=== PATIENT | female | born 1995 | race Caucasian/White ===

== ENCOUNTER 2017-10-09 13:32 | Emergency (ER) | payer SELFPAY ==
[~2017-10-09] VITALS: Ht 167.6 cm; Wt 90.0 kg
[2017-10-09] MEDS ORDERED: LIDOCAINE HCL 1% 20ML VIAL (Pyxis) INJ MC ONE (18:30)
[2017-10-09] MEDS ORDERED: BACITRACIN ZINC OINT UDPKT TOP ONE (18:30)
[2017-10-09] MEDS ORDERED: TETANUS, DIPHTHERIA, PERTUSSIS VAC/PF 0.5ML (>7YR OLD) IM ONE (18:30)
[2017-10-09 21:00] VITALS: BP 128/78
== END 2017-10-09 21:17 | disposition home or self-care (01) ==
LOC: ER 15:17
DX: S61.511A Laceration without foreign body of right wrist, initial encounter (principal); W25.XXXA Contact with sharp glass, initial encounter; Y92.89 Other specified places as the place of occurrence of the external cause; Z23 Encounter for immunization
CPT/HCPCS: 12001; 73110; 81025; 90471; 90715; 99284; J3490; Z7610

== ENCOUNTER 2017-10-16 14:58 | Emergency (ER) | payer SELFPAY ==
[~2017-10-16] VITALS: Ht 152.4 cm; Wt 110.0 kg
[2017-10-16 15:03] VITALS: BP 118/81
== END 2017-10-16 18:10 | disposition home or self-care (01) ==
LOC: ER 15:03
DX: Z48.00 Encounter for change or removal of nonsurgical wound dressing (principal); R03.0 Elevated blood-pressure reading, without diagnosis of hypertension
CPT/HCPCS: 99281

== ENCOUNTER 2022-07-30 01:13 | Emergency (ER) | payer MEDICAID, OTHER ==
[~2022-07-30] VITALS: Ht 167.6 cm; Wt 103.3 kg
[2022-07-30 01:29] VITALS: BP 169/102
[2022-07-30] MEDS ORDERED: AMOX1TAB16 MT (02:22)
[2022-07-30] MEDS ORDERED: IBUP-2029 MT (02:22)
[2022-07-30] MEDS ORDERED: AMOXICILLIN/POTASSIUM CLAVULANATE 875/125MG TAB PO ONE (02:30)
[2022-07-30] MEDS ORDERED: IBUPROFEN 600MG TABLET PO ONE (02:30)
== END 2022-07-30 02:40 | disposition home or self-care (01) ==
LOC: ER 01:13
DX: S61.452A Open bite of left hand, initial encounter (principal); W54.0XXA Bitten by dog, initial encounter; Y93.9 Activity, unspecified; Y92.89 Other specified places as the place of occurrence of the external cause
CPT/HCPCS: 81025; 99283

== ENCOUNTER 2023-05-06 17:40 | Emergency (ER) | payer SELFPAY ==
[~2023-05-06] VITALS: Ht 162.6 cm; Wt 113.0 kg
[~2023-05-06 17:40] MED LIST: AMOX1TAB16 MT; IBUP-2029 MT
[2023-05-06 18:06] VITALS: TEMP 98.6; O2SAT 97
[2023-05-06 18:16] LABS: BASOPHILS % 0.3 % (0.0-2.0); EOSINOPHILS % 0.1 % (0.0-5.0); HEMATOCRIT. 43.1 % (36.0-48.0); HEMOGLOBIN. 14.5 g/dL (12.0-16.0); LYMPHOCYTES % 10.6 % (20.0-50.0); MEAN CORPUSCULAR HEMOGLOBIN 28.8 pg (28.0-32.0); MEAN CORPUSCULAR VOLUME 85.2 fL (81.0-99.0); MEAN PLATELET VOLUME 6.5 fl (7.4-10.4); MONOCYTES % 7.4 % (2.0-8.0); NEUTROPHILS % 81.6 % (40.0-76.0); PLATELET 438 x1000/uL (130-400); RED BLOOD CELL COUNT 5.05 mill/uL (4.2-5.4)
[2023-05-06 18:25] LABS: CHLORIDE 105 mEq/L (98-107)
[2023-05-06 20:02] LABS: CLARITY URINE CLEAR (CLEAR); COLOR URINE YELLOW (YELLOW); KETONES URINE NEGATIVE (NEGATIVE); LEUKOCYTE ESTERASE URINE NEGATIVE (NEGATIVE); NITRITE URINE NEGATIVE (NEGATIVE); OCCULT BLOOD URINE 1+ (NEGATIVE); PH URINE 5.5 (4.5-8.0); PROTEIN URINE 2+ (NEGATIVE); SPECIFIC GRAVITY URINE 1.016 (1.005-1.030); UROBILINOGEN URINE 0.2 E.U./dL (0.2-1.0)
[2023-05-06] MEDS ORDERED: ONDANSETRON 4MG/5ML UDC PO ONE (20:45)
[2023-05-06] MEDS ORDERED: METRONIDAZOLE 500MG TABLET PO ONE (20:45)
[2023-05-06 22:49] VITALS: BP 146/72; PULSE 91; RESP 17
== END 2023-05-06 22:51 | disposition home or self-care (01) ==
LOC: ER 17:40
DX: R11.2 Nausea with vomiting, unspecified (principal); A59.9 Trichomoniasis, unspecified
CPT/HCPCS: 36415; 80053; 81003; 81025; 85025; 99283